=== PATIENT | female | born 1965 | race Caucasian/White ===

== ENCOUNTER 2018-05-08 07:03 | Emergency (ER) | payer BC ==
[~2018-05-08] VITALS: Ht 165.1 cm; Wt 100.0 kg
[~2018-05-08 07:03] MED LIST: ASPIRIN81 MG PO; ESTER-C500 MG PO; ESTRACE VAG0.1 MG/GM VA; FISH OIL1000 MG PO; HYZAAR1 TAB PO; LEVOTHYROXIN50 MC1 PO; LOSARTAN POT100 MG PO; METO50TA52 PO; NO HOME MEDS; PERCOCET1 TA2 PO; PRAVACHOL20 MG PO; TORADOL PO; VITA-C PO; VITAMIN B-12500 MCG PO; VITAMIN D3400 UNI1 PO
[2018-05-08] MEDS ORDERED: MOTRIN400 MG PO (08:00)
[2018-05-08] MEDS ORDERED: CYCLOBENZAPR5 MG PO (08:00)
[2018-05-08 08:11] VITALS: BP 147/66
== END 2018-05-08 08:30 | disposition home or self-care (01) | DRG 552 ==
LOC: ED 07:03
DX: M54.41 Lumbago with sciatica, right side (principal); I10 Essential (primary) hypertension; E03.9 Hypothyroidism, unspecified

== ENCOUNTER 2022-02-12 16:23 | Emergency (ER) | payer OTHER ==
[~2022-02-12] VITALS: Ht 165.1 cm; Wt 35.0 kg
[2022-02-12] VITALS (9 sets, daily range): BP systolic 123–152; BP diastolic 73–137
[~2022-02-12 16:23] MED LIST changes: +CYCLOBENZAPR5 MG PO; +MOTRIN400 MG PO
[2022-02-12] MEDS ORDERED: VITAMIN C1000 MG PO (18:54)
== END 2022-02-12 22:34 | disposition home or self-care (01) | DRG 552 ==
LOC: ED 16:23
DX: S16.1XXA Strain of muscle, fascia and tendon at neck level, initial encounter (principal); S73.101A Unspecified sprain of right hip, initial encounter; S80.01XA Contusion of right knee, initial encounter; W01.0XXA Fall on same level from slipping, tripping and stumbling without subsequent striking against object, initial encounter